=== PATIENT | male | born 1965 | race Caucasian/White ===

== ENCOUNTER 2021-09-05 18:37 | Inpatient (IN) | payer OTHER ==
[~2021-09-05] VITALS: Ht 172.7 cm; Wt 90.7 kg
[~2021-09-05 18:37] MED LIST: BACTRIM DS TAB1 EACH PO
[2021-09-06] MEDS ORDERED: GABAPENTIN600 MG PO (00:29)
[2021-09-06] MEDS ORDERED: VENLAFAXINE HC150 MG PO (00:30)
[2021-09-06] MEDS ORDERED: HYDROCODON-ACE1 EAC6 PO (00:31)
[2021-09-06] MEDS ORDERED: XYZAL5 MG PO (00:32)
[2021-09-06 10:05] LABS: HEMOGLOBIN 14.1 gm/dl (14.0-17.5); RED BLOOD COUNT 4.44 M/UL (4.20-5.50); WHITE BLOOD COUNT 6.9 K/UL (4.5-11.0)
[2021-09-06] MEDS ORDERED: DILAUDID2 MG PO ×3 (13:13→14:11)
[2021-09-06] MEDS ORDERED: DILAUDID 2 MG TA2 MG PO (13:45)
== END 2021-09-06 14:37 | disposition home or self-care (01) | DRG 536 ==
LOC: ER1 18:37 → CDU 09-06 00:07 → M/S 09-06 01:40
PROVIDERS: ADMIT Surgery
DX: S32.9XXA Fracture of unspecified parts of lumbosacral spine and pelvis, initial encounter for closed fracture (principal); W18.30XA Fall on same level, unspecified, initial encounter; Z20.822 Contact with and (suspected) exposure to COVID-19; M25.511 Pain in right shoulder; S70.01XA Contusion of right hip, initial encounter; Z88.0 Allergy status to penicillin
CPT/HCPCS: 36415; 71045; 73030; 73502; 73552; 73700; 85027; 96372; 96374; 96375; 99285; J1170; J1885; J2270; J2360; U0002

== ENCOUNTER → 2021-09-12 | Outpatient (CLI) | payer OTHER ==
[~2021-09-12] MED LIST changes: +DILAUDID 2 MG TA2 MG PO; +DILAUDID2 MG PO; +GABAPENTIN600 MG PO; +HYDROCODON-ACE1 EAC6 PO; +VENLAFAXINE HC150 MG PO; +XYZAL5 MG PO
== END ==
LOC: EXRD 13:00
DX: M79.661 Pain in right lower leg (principal); M79.662 Pain in left lower leg
CPT/HCPCS: 93970